=== PATIENT | female | born 1945 | race Caucasian/White ===

== ENCOUNTER → 2016-10-03 | Outpatient (CLI) | payer MEDICARE ==
[~2016-10-03] MED LIST: ASPI-917 PO; LEVO25TA4 PO; POLY17PO6 PO; TRAM50TA53 PO
[2016-10-03 16:06] LABS: BASOPHILS # (AUTO) 0.1 T/MM3 (0-0.2); BASOPHILS % (AUTO) 0.7 % (0-2); EOSINOPHILS # (AUTO) 0.2 T/MM3 (0-0.5); EOSINOPHILS % (AUTO) 2.3 % (0-4); HCT - HEMATOCRIT 38.9 % (36-46); HGB - HEMOGLOBIN 12.3 GM/DL (12-16); IMMATURE GRANULOCYTE # (AUTO) 0.01 T/MM3 (0.00-0.03); IMMATURE GRANULOCYTE % (AUTO) 0.1 % (0.0-0.5); LYMPHOCYTES # (AUTO) 1.8 T/MM3 (1-4.8); LYMPHOCYTES % (AUTO) 26.7 % (23-45); MEAN CORPUSCULAR HGB 28.9 UUG (26-34); MEAN CORPUSCULAR HGB CONC(MCHC 31.6 GM/DL (31-37); MEAN CORPUSCULAR VOLUME 91.3 UM3 (80-100); MEAN PLATELET VOLUME 11.5 UM3 (9.4-12.4); MONOCYTES # (AUTO) 0.4 T/MM3 (0-0.8); MONOCYTES % (AUTO) 5.6 % (0-9.0); NEUTROPHILS #(AUTO)-ABSOLUTE 4.4 T/MM3 (1.8-7.7); NEUTROPHILS % (AUTO) 64.6 % (33-66); RED BLOOD COUNT 4.26 M/MM3 (4.00-5.20); WBC - WHITE BLOOD COUNT 6.8 T/MM3 (4.5-11.0)
[2016-10-03 16:15] LABS: ALBUMIN 4.1 G/DL (3.5-5.0); ALBUMIN/GLOBULIN RATIO 1.4 RATIO (1.1-2.2); ALKALINE PHOSPHATASE 149 U/L (38-126); ALT (SGPT) 68 U/L (9-52); ANION GAP 13 MEQ/L (5-15); AST (SGOT) 43 U/L (14-36); BUN/CREATININE RATIO 34 RATIO (6-26); CALCIUM 9.8 MG/DL (8.4-10.2); CHLORIDE 106 MEQ/L (98-107); CO2 - CARBON DIOXIDE 27 MEQ/L (22-30); CREATININE 0.5 MG/DL (0.7-1.2); GLOMERULAR FILTRATION RATE 121; GLUCOSE 97 MG/DL (65-110); LDH 468 U/L (313-618); MAGNESIUM 2.2 MG/DL (1.6-2.3); POTASSIUM 4.4 MEQ/L (3.6-5); SODIUM 146 MEQ/L (134-144); TOTAL PROTEIN 7.1 G/DL (6.3-8.2)
== END ==
LOC: LAB 15:41
PROVIDERS: ATTEND Internal Medicine Hematology & Oncology
DX: C25.0 Malignant neoplasm of head of pancreas (principal)
CPT/HCPCS: 36415; 80053; 83615; 83735; 85025; 86301

== ENCOUNTER → 2016-10-12 | Outpatient (CLI) | payer MEDICARE ==
--- NOTE | 2016-10-12 13:53 | DI ---
Indication: Pancreatic cancer status post Whipple 08/10/2016 Procedure: PET/CT SKULL TO THIGH/INITIAL: Encounter: Initial Comparison: None available Technique: Nuclear medicine PET scanning was performed after the administration of 15.4 mCi of F-18 FDG from the base of the skull to the thigh. Noncontrast concurrent CT scanning was performed for attenuation correction and localization purposes only. These images do not constitute a diagnostic quality CT examination and are not used to diagnose disease independently of the PET images. A glucose level before injection was 105 mg/dl. FINDINGS: Head/neck: No obvious abnormal FDG activity identified within the brain allowing for normal physiologic FDG activity. MRI remains the most sensitive/specific modality for evaluation of intracranial metastatic disease. No hypermetabolic cervical lymphadenopathy. Carotid atherosclerotic calcifications incidentally noted. Chest: No hypermetabolic pulmonary nodules/mass or thoracic lymphadenopathy. Normal physiologic accumulation of FDG is identified within the esophageal mucosa and myocardium. Coronary arterial and thoracic aortic atherosclerotic calcifications incidentally noted. Abdomen/pelvis: Postoperative changes of prior Whipple. No hypermetabolic abdominopelvic visceral mass or lymphadenopathy identified. Normal physiologic accumulation of FDG is identified within the kidneys, renal collecting systems/ureters/bladder, and liver. Hepatic steatosis, hiatal hernia, aortoiliac atherosclerotic calcifications, colonic diverticulosis, and hysterectomy incidentally noted. Osseous structures and soft tissues: Normal physiologic accumulation of FDG is identified within the bone marrow. Degenerative spondylosis of the spine incidentally noted. IMPRESSION: Postoperative changes of prior Whipple with no hypermetabolic masses or adenopathy identified to suggest metastatic disease. .
== END ==
LOC: IMA 07:08
PROVIDERS: ATTEND Internal Medicine Hematology & Oncology
DX: C25.0 Malignant neoplasm of head of pancreas (principal); Z98.890 Other specified postprocedural states
CPT/HCPCS: 78815; A9552